=== PATIENT | male | born 1950 | race Caucasian/White ===

== ENCOUNTER 2016-09-24 14:00 | Inpatient (IN) | payer MEDICARE, MEDICAID ==
[~2016-09-24] VITALS: Ht 167.6 cm; Wt 76.4 kg
--- NOTE | ~2016-09-24 | OR ---
PATIENT'S NAME: PRINCESS PROCTOR [facility] AGE: 66 Y [address] ROOM: [address] [address] LOCATION: GPCU ADMIT DATE: 09/29/2016 OR/Procedure Report DISCHARGE DATE: FAMILY PHYSICIAN: Magalis Graves MD ATTENDING PHYSICIAN: DANIEL MERCADO SURGEON: Daniel Mercado MD DIE ATTACHER: DATE OF PROCEDURE: 09/29/2016 PREOPERATIVE DIAGNOSIS: Abdominal aortic aneurysm. POSTOPERATIVE DIAGNOSIS: Abdominal aortic aneurysm. PROCEDURE: Endovascular repair of abdominal aortic aneurysm. MANAGER ARCHITECTURAL: GILBERTO Carlisle. ANESTHESIA: General. ESTIMATED BLOOD LOSS: 200 mL. OPERATIVE FINDINGS: Aneurysm repair with no evidence of endoleak. DESCRIPTION OF PROCEDURE: The patient was brought to the [facility], placed under general anesthesia, prepped and draped in a sterile manner. Preoperative time-out was performed. The patient received preoperative antibiotics. We did a standard cutdown on the right groin to dissect down the fascia, incised the fascia in a longitudinal manner. Dissected out the common femoral artery. We placed vessel loops both proximally and distally. We gained access to the left groin using a standard percutaneous technique and inserted a 7-[place]izen [place] sheath into the ipsilateral vessel. Replaced a 7-[place]izen [place] sheath also using standard technique into the exposed common femoral artery on the right. We passed a Glidewire through the right side and exchanged using a pigtail catheter for a stiff Lunderquist wire which was parked in the chest. We loaded the main body which was 25 110 x 116 30 AFX2 bifurcate device onto the stiff wire and advanced to the contralateral where up to the 19-Citizen [place] OD AFX introducer sheath using a wire guide. The contralateral wire was snared and pulled out the contra side. AFX2 bifurcate device was transferred into the AFX introducer sheath and advanced under fluoro until distal limbs were above the aortic bifurcation releasing the limbs of the graft, pulled the entire system down on the aortic bifurcation. Deployed the main body of the graft by pulling on the control cord handle. We deployed the contralateral limb by pulling the yellow limb cover and advancing a pigtail catheter over the contra wire until the tip was in contact with the wire lock. Held the pigtail catheter in place and pulled on the contra wire to release it from the lock. Deployed the PATIENT'S NAME: PRINCESS PROCTOR [facility] AGE: 66 Y [address] ROOM: [place] [address] LOCATION: GPCU ADMIT DATE: 09/29/2016 OR/Procedure Report DISCHARGE DATE: FAMILY PHYSICIAN: Magalis Graves MD ATTENDING PHYSICIAN: DANIEL MERCADO ipsilateral limb by pinning the inner core and retracting the AFX introducer sheath, advanced a 28 28 C95 O20D infrarenal extension, and I was in the infrarenal position and performed an angiogram to visualize the renal arteries. I removed the safety clamp and began deployment by turning the control down until fully deployed. We then bridged between the [place] and the main body with a 28x28 C95B bridging device and deployed that in a standard fashion. We removed the extension delivery device from AFX introducer sheath and advanced a Coda balloon to the proximal end of the endograft of the main body balloon, endograft assistance throughout the body and ipsi limb. Inserted a 12 x 4 balloon from the contra side and the ballooned the contra limb of the bifurcated device performed. Angiogram to inspect for any visible leaks and there was none were found, and closure was performed in a standard fashion. The patient tolerated the procedure well and transferred to the recovery room, and then back to the floor. MD ANABEL MENDEZ/dewayne /[id number] d: 09/29/162135 t: 10/02/161812, OPERATIVE SUMMARY
--- NOTE | ~2016-09-24 | CON ---
PATIENT'S NAME: PRINCESS PROCTOR [facility] AGE: 66 Y [address] ROOM: [place] [address] LOCATION: GPCU ADMIT DATE: 09/29/2016 Consultation DISCHARGE DATE: FAMILY PHYSICIAN: Magalis Graves MD ATTENDING PHYSICIAN: MICHAEL MERCADO DATE OF CONSULTATION: 09/29/2016 REASON FOR CONSULTATION: Medical management. CONSULTING PHYSICIAN: Dr. Govea. HISTORY OF PRESENT ILLNESS: The patient is a 66-year-old male who is postop day 0 for endovascular repair of AAA. At this point, the patient is not volunteering any complaints. He denies any chest pain, shortness of breath, nausea, vomiting, diarrhea, palpitations, tremulousness, or near syncope. REVIEW OF SYSTEMS: All systems have been reviewed and are negative aside from pertinent positives as mentioned above. PAST MEDICAL HISTORY: Significant for coronary artery disease, hypertension, hypercholesterolemia, questionable alcoholism, and tobaccoism. PAST SURGICAL HISTORY: Significant for CABG 7 years ago as well as a cholecystectomy. SOCIAL HISTORY: The patient is a pack-a-day smoker and has been for a long period of time. When asked about how much alcohol he consumes, he reports that depends on how much money he has. However, he reports that he has not had any alcohol in the last 2 weeks. FAMILY HISTORY: Reviewed and is noncontributory due to known underlying etiology for his current presentation. CURRENT MEDICATIONS: 1. Zofran. PATIENT'S NAME: PRINCESS PROCTOR [facility] AGE: 66 Y [address] ROOM: [place] [address] LOCATION: GPCU ADMIT DATE: 09/29/2016 Consultation DISCHARGE DATE: FAMILY PHYSICIAN: Magalis Graves MD ATTENDING PHYSICIAN: MICHAEL MERCADO 2. Nitroglycerin. 3. Metoprolol. 4. Meclizine. 5. Lacey. 6. Cyanocobalamin. 7. Clopidogrel. 8. Atorvastatin. 9. Aspirin. PHYSICAL EXAMINATION: VITAL SIGNS: Temperature 97.6, pulse is 56, respirations are 20, blood pressure 161/57, and saturating 100% on 2 L nasal cannula. GENERAL: Appears as a frail middle-aged male in no acute distress. NEUROLOGICAL: Exam is nonfocal. EYES: Exam shows no icterus. Extraocular movements are intact. ENT: Reveals no stridor. LYMPHATIC: Exam shows no cervical lymphadenopathy. ENDOCRINE: Exam shows no thyromegaly. LUNGS: Clear to auscultation. HEART: Rate is regular with no appreciable murmurs, gallops, or rubs. GI: Abdomen is soft, nontender, nondistended. : No costovertebral angle tenderness. VASCULAR: Exam shows 2+ pedal pulses. MUSCULOSKELETAL: Exam is unremarkable. SKIN: Warm and dry. PSYCHIATRIC: Reveals appropriate mood, cognition, and affect. LABORATORY DATA: Studies performed in the hospital so far are significant for an unremarkable basic metabolic profile, complete metabolic profile, and a CBC with a polycythemia of hemoglobin of 16.6. IMPRESSION AND RECOMMENDATIONS: This is a 66-year-old male postop day 0 for an endovascular abdominal aortic aneurysm repair. Individual problems to be addressed as follows: 1. Coronary artery disease. We will continue the patient on metoprolol and aspirin. I am not sure why he is on Plavix and we will hold off on that in the immediate perioperative period and we will discuss with Vascular Surgery about the need for this medication. 2. Hypercholesterolemia. We will continue the patient on his statin. 3. Tobaccoism. I did offer the patient a nicotine patch and counseled him on tobacco cessation, but at this point, he refused the patch though he is interested in quitting and we will continue that effort. 4. Polycythemia. This is likely related to his longstanding tobacco abuse. We will follow the patient with you. Thank you for involving us in the care PATIENT'S NAME: PRINCESS PROCTOR [facility] AGE: 66 Y [address] ROOM: [id number] [place], [place] [address] [facility] ADMIT DATE: 09/29/2016 Consultation DISCHARGE DATE: FAMILY PHYSICIAN: Magalis Graves MD ATTENDING PHYSICIAN: MICHAEL MERCADO of this gentleman. Time dedicated to this patient encounter is 35 minutes. MD VERA STILES/dewayne /[id number] d: 09/29/16 2332 t: 10/04/16 1531, CONSULTATION REPORT
--- NOTE | ~2016-09-24 | DS ---
PATIENT'S NAME: PRINCESS PROCTOR [facility] AGE: 66 Y [address] ROOM: [address] [place] [id number] LOCATION: GPCU ADMIT DATE: 09/29/2016 Discharge Summary DISCHARGE DATE: 10/01/2016 FAMILY PHYSICIAN: Magalis Graves MD ATTENDING PHYSICIAN: Daniel Aldana FINAL DIAGNOSIS: Abdominal aortic aneurysm. SECONDARY DIAGNOSES: 1. Hypertension. 2. Dyslipidemia. 3. Tobaccoism. 4. Coronary artery disease and history of coronary artery bypass grafting. PROCEDURE: Endovascular aneurysm repair of abdominal aortic aneurysm with Dr. Aldana on September 25, 2016. CONSULTATION: Hospitalist for medication management. HOSPITAL COURSE: This is a 66-year-old male, admitted to [facility] on September 29, 2016, after endovascular aneurysm repair. The patient was found to have a 5.5 cm abdominal aortic aneurysm on CTA. The patient was asymptomatic and had no abdominal or back pain prior to surgery. The patient has a long smoking history. See full history and physical as well as operative summary for full patient details. The patient tolerated the procedure well and after recovery was transferred to the progressive care unit for 24-hour bedrest, monitoring of surgical sites, pain management, monitoring of distal pulses, telemetry, labs, vitals, as well as nursing assistance and medication administration. The patient did have a significant alcohol history and was monitored closely for withdrawal. The hospitalist completed alcohol and drug detox pathway orders as well as ordered thiamine, folate, and multivitamin. The evening of postoperative day 0, the patient became nauseous and had chest discomfort. Cardiac enzymes and EKG were obtained. The cardiac enzymes remained negative and the patient was chest pain free the next day. The patient did continue to feel nauseous with dry heaving. The patient does have a history of nausea with iodine exposure. Postoperative day #1, the patient had surrounding ecchymosis to his right groin incision after experiencing cough and emesis in the night. There was no hematoma found at the site and dressings remained clean, dry, and intact. The patient was allowed out of bed postoperative day 1 and his Marsh was discontinued. Hydralazine IV was ordered p.r.n. for systolic blood pressures greater than 160. On postoperative day 2, surgical incisions were again found stable and distal pulses remained palpable. The patient's nausea was well-controlled and he tolerated solids without problem. The patient had no further episodes of chest pain or complications. His hematology remained stable and unremarkable PATIENT'S NAME: PRINCESS PROCTOR [facility] AGE: 66 Y [address] ROOM: [id number] [place], [place] [address] LOCATION: GPCU ADMIT DATE: 09/29/2016 Discharge Summary DISCHARGE DATE: 10/01/2016 FAMILY PHYSICIAN: Magalis Graves MD ATTENDING PHYSICIAN: Daniel Aldana during his hospital stay. The patient was found in a stable condition and was discharged home. DISCHARGE ORDERS: The patient is to be discharged to home. He is to avoid heavy lifting for 2 weeks. He is to follow up at the [facility] in 4 weeks, with Sharon Voss APRN, for wound evaluation and staple removal. The patient will need a CTA in 3 months per stent graft protocol. He is to apply a dry dressing to his right groin incision daily. He is to report any signs or symptoms of infection including fevers, chills, drainage, swelling or redness. DISCHARGE MEDICATIONS: 1. Zofran 8 mg p.o. every 6 hours as needed for nausea. 2. Lipitor 80 mg p.o. daily. 3. Plavix 75 mg p.o. daily. 4. Nitroglycerin 0.4 mg sublingual as needed for chest pain. 5. [place] 5/325 one tablet every 6 hours as needed for pain. 6. Antivert 12.5 mg p.o. every 6 hours as needed for dizziness. 7. Lopressor 25 mg p.o. daily. 8. Aspirin 81 mg p.o. daily. 9. Vitamin B12 1000 mcg p.o. daily. 10. Folic acid 1 mg p.o. daily. 11. Thiamine 100 mg p.o. daily. DISPOSITION: The patient is discharged to home in a stable condition. He is to follow discharge orders as prescribed. Education about discharge including surgical site care, smoking cessation, medications, prescriptions, diet and activity, and followup appointments were given to the patient. The patient verbalized understanding the plan and has no further questions or concerns. He is to follow discharge orders as prescribed. SHARON VOSS APRN FOR MD NICOLÁS MENDEZ/dewayne /[id number] d: 10/07/16 0238 t: 10/07/16 0954, DISCHARGE SUMMARY
[2016-09-24] MEDS ORDERED: PLAVIX75 MG PO (15:20)
[2016-09-24] MEDS ORDERED: LIPITOR80 MG PO (15:20)
[2016-09-24] MEDS ORDERED: ZOFRAN8 MG PO (15:20)
[2016-09-24] MEDS ORDERED: HYDROCODON-ACE1 EAC4 PO (15:21)
[2016-09-24] MEDS ORDERED: NITROSTAT0.4 MG SL (15:21)
[2016-09-24] MEDS ORDERED: ANTIVERT **IA12.5 MG PO (15:22)
[2016-09-24] MEDS ORDERED: ASPIRIN EC81 MG PO (15:22)
[2016-09-24] MEDS ORDERED: LOPRESSOR25 MG PO (15:22)
[2016-09-24] MEDS ORDERED: VITAMIN B-121000 MCG PO (15:22)
[2016-09-30 00:25] LABS: CPK 52 IU/L (35-332)
[2016-09-30 05:20] LABS: BASOPHIL # 0.1 K/uL (0.0-0.2); BASOPHIL % 0.5 %; EOSINOPHIL # 0.1 K/uL (0.0-0.5); EOSINOPHIL % 0.6 %; HEMATOCRIT 43.3 % (37.0-53.0); HEMOGLOBIN 14.4 g/dL (11.0-16.0); IMMATURE GRANULOCYTE # 0.1 K/uL (0.0-0.3); IMMATURE GRANULOCYTE % 0.6 %; LYMPHOCYTE # 1.8 K/uL (0.8-4.0); MCH 31.2 pg (27.0-34.0); MCHC 33.3 gm/dL (32.0-36.5); MCV 93.7 fl (83.0-98.0); MONOCYTE # 0.9 K/uL (0.0-1.0); MONOCYTE % 7.4 %; MPV 9.3 fl (9.4-12.4); NEUTROPHIL # (ANC) 8.6 K/uL (1.4-9.0); NEUTROPHIL % 74.9 %; NRBC % 0 /100WBC (0-0.00); PLATELET COUNT 137 K/uL (150-450); RBC 4.62 M/uL (3.50-5.50); RDW-CV 12.7 % (11.9-14.6); WBC 11.5 K/uL (4.0-11.0)
[2016-09-30 05:46] LABS: ANION GAP 10.8 (10.0-19.0); BLOOD UREA NITROGEN 9 mg/dL (6-24); CALCIUM 8.2 mg/dL (8.5-10.5); CHLORIDE 105 mMol/L (96-110); CO2 26 mMol/L (22-32); CREATININE 0.9 mg/dL (0.6-1.3); ESTIMATED GFR (MDRD EQUATION) > 60; POTASSIUM 3.8 mMol/L (3.7-5.1); SODIUM 138 mMol/L (135-145)
[2016-10-01 03:36] LABS: BASOPHIL # 0.1 K/uL (0.0-0.2); BASOPHIL % 0.6 %; EOSINOPHIL # 0.1 K/uL (0.0-0.5); EOSINOPHIL % 1.5 %; HEMATOCRIT 41.6 % (37.0-53.0); HEMOGLOBIN 14.1 g/dL (11.0-16.0); IMMATURE GRANULOCYTE % 0.2 %; LYMPHOCYTE # 1.5 K/uL (0.8-4.0); MCH 31.5 pg (27.0-34.0); MCHC 33.9 gm/dL (32.0-36.5); MCV 93.1 fl (83.0-98.0); MONOCYTE # 0.7 K/uL (0.0-1.0); MONOCYTE % 8.3 %; MPV 9.3 fl (9.4-12.4); NEUTROPHIL # (ANC) 5.9 K/uL (1.4-9.0); NEUTROPHIL % 71.4 %; NRBC % 0 /100WBC (0-0.00); PLATELET COUNT 132 K/uL (150-450); RBC 4.47 M/uL (3.50-5.50); RDW-CV 12.6 % (11.9-14.6); WBC 8.3 K/uL (4.0-11.0)
[2016-10-01 03:53] LABS: ANION GAP 13.1 (10.0-19.0); BLOOD UREA NITROGEN 7 mg/dL (6-24); CALCIUM 8.7 mg/dL (8.5-10.5); CHLORIDE 104 mMol/L (96-110); CO2 25 mMol/L (22-32); CREATININE 0.8 mg/dL (0.6-1.3); ESTIMATED GFR (MDRD EQUATION) > 60; POTASSIUM 4.1 mMol/L (3.7-5.1); SODIUM 138 mMol/L (135-145)
[2016-10-01] MEDS ORDERED: FOLIC ACID1 MG PO (13:39)
[2016-10-01] MEDS ORDERED: THIAMINE HCL100 MG PO (13:39)
== END 2016-10-01 14:45 | disposition disaster alternative care site (69) | DRG 269 ==
LOC: GPCU 09-29 07:01
PROVIDERS: Internal Medicine; ADMIT Surgery Vascular Surgery
PROC: 04V03E6 (ICD-10-PCS; principal; 2016-09-29)
DX: I71.4 Abdominal aortic aneurysm, without rupture (principal); J44.9 Chronic obstructive pulmonary disease, unspecified; D75.1 Secondary polycythemia; E78.5 Hyperlipidemia, unspecified; F17.210 Nicotine dependence, cigarettes, uncomplicated; I25.2 Old myocardial infarction; I10 Essential (primary) hypertension; I25.10 Atherosclerotic heart disease of native coronary artery without angina pectoris; Z95.1 Presence of aortocoronary bypass graft; I70.8 Atherosclerosis of other arteries; Z86.010 Personal history of colon polyps; Z79.02 Long term (current) use of antithrombotics/antiplatelets; Z79.82 Long term (current) use of aspirin; R07.9 Chest pain, unspecified
CPT/HCPCS: C1725; C1769; C1874; C1894; C2628; J1100; J1644; J1650; J2001; J2250; J2405; J2720; J3480; J7030; J7050